=== PATIENT | male | born 1950 | race Caucasian/White ===

== ENCOUNTER 2017-11-29 09:45 | Outpatient (CLI) | payer OTHER | END 2017-11-29 09:46 | disposition home or self-care (01) | LOC: SC 09:45 | PROVIDERS: ATTEND Internal Medicine Pulmonary Disease | DX: G47.10 Hypersomnia, unspecified (principal); R06.83 Snoring | CPT/HCPCS: 99203; 99212 ==

== ENCOUNTER 2018-01-08 20:09 | Outpatient (CLI) | payer OTHER | END 2018-01-08 20:10 | disposition home or self-care (01) | LOC: SC 20:09 | PROVIDERS: ATTEND Internal Medicine Pulmonary Disease | DX: G47.61 Periodic limb movement disorder (principal) | CPT/HCPCS: 95810 ==

== ENCOUNTER 2018-01-19 13:28 | Outpatient (CLI) | payer OTHER | END 2018-01-19 13:29 | disposition home or self-care (01) | LOC: SC 13:28 | PROVIDERS: ATTEND Internal Medicine Pulmonary Disease | DX: G47.61 Periodic limb movement disorder (principal) | CPT/HCPCS: 99212; 99213 ==